=== PATIENT | female | born 1985 | race Caucasian/White ===

== ENCOUNTER 2016-06-12 18:34 | Emergency (ER) | payer OTHER ==
[~2016-06-12] VITALS: Ht 157.5 cm; Wt 83.9 kg
[~2016-06-12 18:34] MED LIST: BENTYL20 MG PO; CARDIZEM 30 MG30 MG PO; COMPAZINE10 MG PO; LEVOTHYROXINE88 MCG PO; MASON NATURAL2000 IU PO; METOCLOPRAMIDE10 MG PO; NEXIUM 40MG40 MG PO; PHENERGAN25 M1 PO; PRILOSEC 20MG C20 MG PO; REGLAN10 M1 PO; ULTRAM(MONOGRAP50 MG PO; ZOFRAN 4MG ORALL4 MG PO
[2016-06-12 19:09] LABS: ABSOLUTE BASOPHIL COUNT 0.1 /CUMM (0.0-0.2); ABSOLUTE EOSINOPHIL COUNT 0 /CUMM (0.0-0.7); ABSOLUTE GRANULOCYTE CT 9.5 /CUMM (1.4-6.5); ABSOLUTE LYMPH COUNT 1.5 /CUMM (1.2-3.4); ABSOLUTE MONOCYTE COUNT 0.5 /CUMM (0.10-0.60); BASOPHIL % 0.6 % (0.0-2.0); EOSINOPHIL % 0.1 % (0-5); GRANULOCYTE % 82.3 % (42.2-75.2); HEMATOCRIT 37.1 % (37-47); MEAN CORPUSCULAR HGB 24.5 PG (27.0-31.0); MEAN CORPUSCULAR HGB CONC 32.7 G/DL (33.0-37.0); MEAN PLATELET VOLUME 8.1 FL (7.4-10.4); PLATELET COUNT 395 /CUMM (130-400); RBC DISTRIBUTION WIDTH 17.1 % (11.5-14.5); RED BLOOD CELL CT 4.94 /CUMM (4.20-5.40); WHITE BLOOD CELL COUNT 11.6 /CUMM (4.8-10.8)
--- NOTE | 2016-06-12 19:22 | ED GI/GU/ABDOMINAL COMPLAINT ---
History of Present Illness General Chief Complaint: Nausea, Vomiting, Diarrhea Stated Complaint: ABD PAIN XS 1 DAY VOMITING Source: patient, family, old records Exam Limitations: no limitations Vital Signs & Intake/Output Vital Signs & Intake/Output Vital Signs Date Time Temp Pulse Resp B/P Pulse O2 O2 Flow FiO2 Ox Delivery Rate 06/12 2157 97.3 73 18 117/75 99 Room Air 06/12 2023 Room Air 06/12 1837 98.1 105 18 120/77 99 Room Air Allergies Coded Allergies: NO KNOWN ALLERGIES (05/30/14) Reconcile Medications CHOLECALCIFEROL (VITAMIN D3) (Vitamin D) 2,000 UNIT CAPSULE 1 CAP PO DAILY SUPPLEMENT (Reported) Dicyclomine Hydrochloride (Bentyl) 20 MG TAB 1 TAB PO 4 TIMES/DAY PRN ABDOMINAL CRAMPS Reason to Stop at ADM: NOT WORKING A/T PT Levothyroxine Sodium 0.025 MG TAB 1 TAB PO DAILY AC THYROID (Reported) Lorazepam (Ativan) 1 MG TABLET 1 TAB PO TID PRN NAUSEA METOCLOPRAMIDE HCL (Metoclopramide HCl) 10 MG TABLET 1 TAB PO BID N/V ( Reported) Omeprazole (Prilosec) 20 MG CAPSULE.DR 2 CAP PO BID HEARTBURN Ondansetron Odt 4 MG TAB.RAPDIS 4 MG PO Q4-6 PRN PRN NAUSEA/VOMITING Prochlorperazine Maleate (Compazine) 10 MG TAB 1 TAB PO TID PRN NAUSEA Promethazine HCl 12.5 MG TABLET 1 TAB PO Q6-8 PRN NAUSEA Promethazine Hydrochloride (Phenergan) 25 MG TAB 1 TAB PO TID PRN NAUSEA Triage Note: 31 Y/O FEMALE C/O ABDOMINAL "SPASMS" AND N/V/D SINCE YESTERDAY. STATES SHE CALLED DR GREEN AND HE TOLD HER TO COME TO ED. Triage Nurses Notes Reviewed? yes LMP (ages 10-50): 1 WEEK AGO ? N Is pt currently ? No Onset: Abrupt Duration: day(s): (3), constant Timing: recent history Quality/Severity: aching, vomiting Severity Numbers: 6 Location: generalized abdomen Radiation: no radiation Activities at Onset: none Prior Abdominal Problems: similar symptoms (CVS) Modifying Factors: Worsens With: eating. Associated Symptoms: nausea/vomiting HPI: 31-year-old female with history of cyclical vomiting syndrome, hypothyroid GERD presents to emergency room complaining of intractable nausea and vomiting for the past 3 days associated generalized abdominal pain. The patient states he states symptoms feel similar to her previous episode. The patient seen by GI Dr. Palmer and takes Reglan regularly. She's been taking it today without improvement. She denies any fever chills diarrhea change in her bowel movements chest pain urinary symptoms. Last menstrual cycle was one week ago. Symptoms are worse with attempted eating and drinking. There is no sick contacts with similar symptoms she denies tobacco alcohol or drug use. No history of abdominal surgeries in the past Past History Travel History Traveled to [place] past 21 day No Medical History Any Pertinent Medical History? see below for history Neurological: dizziness, migraine EENT: NONE Cardiovascular: hyperlipidemia Respiratory: NONE Gastrointestinal: GERD, CYCLICAL VOMITING SYNDROME Hepatic: NONE Renal: NONE Psychiatric: anxiety Endocrine: Taylor's thyroiditis, hypothyroidism Blood Disorders: NONE Cancer(s): NONE AGRICULTURAL SPECIALIST/Reproductive: chlamydia History of MRSA: No History of VRE: No History of CDIFF: No Surgical History Surgical History: non-contributory Psychosocial History Who do you live with Friend Services at Home None What is your primary language Guamanian Tobacco Use: Current Daily Use Daily Tobacco Use Amount/Type: => 5 Cigarettes daily Family History Hx Contributory? No Review of Systems Review of Systems Constitutional: Reports: see HPI. All Other Systems: Reviewed and Negative Comments Review of systems: See HPI, All other systems negative. Constitutional, no chills no fever, no malaise HEENT: No visual changes no sore throat no congestion Cardiovascular: No chest pain , no palpitation Skin, no jaundice no rashes, no change in skin Respiratory: No dyspnea no cough no sputum no hemoptysis GI: nausea vomiting, no diarrhea, no bloating/constipation : No dysuria No hematuria, no frequency, no discharge Muscle skeletal: No joint pain, no joint swelling, no back pain Neurologic: No numbness no confusion, no headache Psych: No stress Heme/endocrine: No bruising no bleeding Immunology: No lymphadenopathy Physical Exam Physical Exam General Appearance: well developed/nourished, no apparent distress, alert Gastrointestinal: normal bowel sounds, soft, non-tender Comments: Well-developed well-nourished person in no acute distress HEENT: Normal EENT exam; PERRL, EOMI, HEAD is atraumatic. moist mucous membranes. Neck: Supple, , normal range of motion Back: Nontender, no CVA tenderness. Full range of motion Cardiovascular: Regular rate and rhythms no murmurs rubs Respiratory: Chest nontender. No respiratory distress. Patient speaking in full complete sentences. Breath sounds clear to auscultation bilaterally: NO W/R/R Abdomen: Soft, nontender nondistended, no appreciable organomegaly. Normal bowel sounds. No rebound/guarding, No appreciable enlargement of the abdominal aorta, No ascites. Extremity: No edema, full range of motion of extremities Neuro: Alert oriented x3, motor sensory normal There were no obvious focal neurologic abnormalities. Skin: No appreciable rash on exposed skin, skin is warm and dry. No jaundice no diaphoresis Psych: Mood and affect is normal, memory and judgment is normal. Core Measures ACS in differential dx? No Severe Sepsis Present: No Septic Shock Present: No Progress Differential Diagnosis: appendicitis, biliary colic, bowel obstruction, colon cancer, diverticulitis, ectopic , endometritis, gastritis, hepatitis, hernia, ischemic bowel, inflamm bowel dis, intrauterine , kidney stone, pancreatitis, peptic ulcer, PUD/GERD, perforated viscous, threatened AB, UTI/ pyelo Plan of Care: Orders Procedure Date/time Status URINE 06/12 1838 Complete URINALYSIS 06/12 1838 Complete LACTIC ACID 06/12 1838 Complete COMPREHENSIVE METABOLIC PANEL 06/12 1838 Complete CBC WITHOUT DIFFERENTIAL 06/12 1838 Complete Laboratory Tests 06/12/162138: Lactic Acid Cancelled 06/12/16 193: Urine Color YEL, Urine Clarity CLEAR, Urine pH 6.0, Ur Specific [place] 1.020, Urine Protein NEG, Urine Ketones TRACE H, Urine Nitrite NEG, Urine Bilirubin NEG, Urine Urobilinogen 0.2, Ur Leukocyte Esterase NEG, Ur Microscopic EXAM NOT REQUIRED, Urine Hemoglobin NEG, Urine Glucose NEG, Urine Test NEGATIVE 06/12/16 1850: Anion Gap 13, Estimated GFR > 60, BUN/Creatinine Ratio 14.3, Glucose 106 H, Lactic Acid 1.0, Calcium 10.0, Total Bilirubin 0.4, AST 22, ALT 30, Alkaline Phosphatase 92, Total Protein 8.4 H, Albumin 4.9, Globulin 3.5, Albumin/ Globulin Ratio 1.4, CBC w Diff NO MAN DIFF REQ, RBC 4.94, MCV 75.0 L, MCH 24.5 L, RDW 17.1 H, MPV 8.1, Gran % 82.3 H, Lymphocytes % 13.0 L, Monocytes % 4.0, Eosinophils % 0.1, Basophils % 0.6, Absolute Granulocytes 9.5 H, Absolute Lymphocytes 1.5, Absolute Monocytes 0.5, Absolute Eosinophils 0, Absolute Basophils 0.1, PUBS MCHC 32.7 L Labs ordered old records reviewed patient medicated Ativan 1 mg IV Phenergan 50 mg IV IV fluids CAT scan ordered old records reviewed 06/12/2016 8:40:41 PM patient reports to feeling improved, she's had no episodes of vomiting here she reports her symptoms have improved with the medication. I discussed with her at late Her lab results and CAT scan findings we will continue to monitor. 06/12/2016 9:41:14 PM on repeat evaluation patient is resting comfortably, she's had no episodes of nausea vomiting or pain since being medicated with the Ativan which she reports improvement with. Discussed with her at length that he do not believe the patient requires admission which she is in agreement with advise close follow-up with GI Dr. Palmer, prescription for Phenergan Ativan was provided advised return anytime sooner if any concerns she feels comfortable this plan. I discussed with the patient at length all of their results, need for close follow up with their primary care physician. This week. I answered all of their questions, they feel comfortable with the plan and follow-up care. I discussed the medications that they will receive with the patient. I gave them signs and symptoms that could indicate an adverse reaction. I have advised them to limit their activities until they can see how they respond to the medication. (MIGUEL A AVILES,SUPA) Diagnostic Imaging: Viewed by Me: CT Scan. Discussed w/RAD: CT Scan. Radiology Impression: PATIENT: ROLANDO LOZADA PRESENT AGE: 31 PATIENT ACCOUNT NO: [id number] : 83 LOCATION: [facility] ORDERING PHYSICIAN: SUPA AVILES SERVICE DATE: 06/12/16 EXAM TYPE: CAT - CT ABD & PELVIS W IV CONTRAST EXAMINATION: CT ABDOMEN AND PELVIS WITH CONTRAST CLINICAL INFORMATION: Nausea and vomiting. COMPARISON: CT of the abdomen and pelvis from 05/31/2014 TECHNIQUE: Multidetector volumetric imaging was performed of the abdomen and pelvis before and after the IV administration of 95 mL of Optiray 320 intravenous contrast. Sagittal and coronal reformatted images were obtained on the technologist's workstation. DLP: 359 mGy-cm. FINDINGS: LUNG BASES: Minor dependent changes in the lung bases. The imaged heart and pericardium appear unremarkable. LIVER, GALLBLADDER, AND BILIARY TREE: The liver is normal in size, shape, and attenuation. No focal hepatic lesion or biliary ductal dilatation is present. The gallbladder is unremarkable with no evidence of radiopaque gallstones, gallbladder wall thickening, or obvious pericholecystic inflammatory changes. Minor density in the gallbladder fundus may reflect a trace amount of sludge. PANCREAS: Unremarkable. SPLEEN: Unremarkable. ADRENAL GLANDS: Unremarkable. KIDNEYS AND URETERS: The kidneys are normal in size, shape, and attenuation. No hydronephrosis, hydroureter, or calculi seen. No perinephric stranding. BLADDER: Under distended and unremarkable GASTROINTESTINAL TRACT: The small and large bowel are unremarkable. The appendix is unremarkable. ABDOMINAL WALL: There is a small fat-containing periumbilical hernia. LYMPH NODES: No adenopathy. VASCULAR: Unremarkable. PELVIC VISCERA: Unremarkable. OSSEOUS STRUCTURES: There is a mild dextroconvex lumbar scoliosis. 5 nonrib-bearing lumbar type vertebral bodies. No evidence of spondylolyses. No acute osseous abnormalities. IMPRESSION: No acute intra- abdominal or intrapelvic pathology. DICTATED BY: MARLENE HARTMANN MD DATE/TIME DICTATED:06/12/162021 ROTATING EQUIPMENT SPECIALIST:CARI DATE/TIME TRANSCRIBED:2021 CONFIDENTIAL, DO NOT COPY WITHOUT APPROPRIATE AUTHORIZATION. < Electronically signed in Other Vendor System> SIGNED BY: MARLENE HARTMANN MD 06/12/162031 Initial ED EKG: none Departure Departure Time of Disposition: 2144 Disposition: HOME OR SELF CARE Condition: Stable Clinical Impression Primary Impression: Nausea & vomiting Referrals: MIRZA TREJO MD (PCP/Family) Additional Instructions: Follow-up with Dr. Palmer as scheduled on . Ativan as directed Phenergan as directed for nausea these prescriptions were sent to your pharmacy bland diet clear liquids advance as tolerated return anytime sooner with any concerns Departure Forms: Customer Survey General Discharge Information Prescriptions: Current Visit Scripts Lorazepam (Ativan) 1 TAB PO TID PRN NAUSEA #10 TAB Promethazine HCl 1 TAB PO Q6-8 PRN NAUSEA #10 TAB
--- NOTE | 2016-06-12 20:32 | CT SCAN REPORT ---
EXAMINATION: CT ABDOMEN AND PELVIS WITH CONTRAST CLINICAL INFORMATION: Nausea and vomiting. COMPARISON: CT of the abdomen and pelvis from 05/31/2014 TECHNIQUE: Multidetector volumetric imaging was performed of the abdomen and pelvis before and after the IV administration of 95 mL of Optiray 320 intravenous contrast. Sagittal and coronal reformatted images were obtained on the technologist's workstation. DLP: 359 mGy-cm. FINDINGS: LUNG BASES: Minor dependent changes in the lung bases. The imaged heart and pericardium appear unremarkable. LIVER, GALLBLADDER, AND BILIARY TREE: The liver is normal in size, shape, and attenuation. No focal hepatic lesion or biliary ductal dilatation is present. The gallbladder is unremarkable with no evidence of radiopaque gallstones, gallbladder wall thickening, or obvious pericholecystic inflammatory changes. Minor density in the gallbladder fundus may reflect a trace amount of sludge. PANCREAS: Unremarkable. SPLEEN: Unremarkable. ADRENAL GLANDS: Unremarkable. KIDNEYS AND URETERS: The kidneys are normal in size, shape, and attenuation. No hydronephrosis, hydroureter, or calculi seen. No perinephric stranding. BLADDER: Under distended and unremarkable GASTROINTESTINAL TRACT: The small and large bowel are unremarkable. The appendix is unremarkable. ABDOMINAL WALL: There is a small fat-containing periumbilical hernia. LYMPH NODES: No adenopathy. VASCULAR: Unremarkable. PELVIC VISCERA: Unremarkable. OSSEOUS STRUCTURES: There is a mild dextroconvex lumbar scoliosis. 5 nonrib-bearing lumbar type vertebral bodies. No evidence of spondylolyses. No acute osseous abnormalities. IMPRESSION: No acute intra-abdominal or intrapelvic pathology.
[2016-06-12] MEDS ORDERED: PROMETHAZINE12.5 M2 PO (21:47)
[2016-06-12] MEDS ORDERED: ATIVAN1 M1 PO (21:47)
[2016-06-12 21:58] VITALS: BP 117/75
== END 2016-06-12 21:57 ==
LOC: ERH 18:34
PROVIDERS: Emergency Medicine
DX: R11.2 Nausea with vomiting, unspecified (principal)
CPT/HCPCS: 74177; 81003; 81025; 96374; 96375; J2550

== ENCOUNTER 2016-06-18 03:16 | Emergency (ER) | payer OTHER ==
[~2016-06-18] VITALS: Ht 157.5 cm; Wt 81.6 kg
[~2016-06-18 03:16] MED LIST changes: +ATIVAN1 M1 PO; +PROMETHAZINE12.5 M2 PO
--- NOTE | 2016-06-18 03:37 | ED GI/GU/ABDOMINAL COMPLAINT ---
History of Present Illness General Chief Complaint: Nausea, Vomiting, Diarrhea Stated Complaint: CONSTANT NAUSEA, CAN'T SLEEP Source: patient Exam Limitations: no limitations Vital Signs & Intake/Output Vital Signs & Intake/Output Vital Signs Date Time Temp Pulse Resp B/P Pulse O2 O2 Flow FiO2 Ox Delivery Rate 06/18 0328 97.5 102 18 110/78 97 Room Air Allergies Coded Allergies: NO KNOWN ALLERGIES (05/30/14) Reconcile Medications CHOLECALCIFEROL (VITAMIN D3) (Vitamin D) 2,000 UNIT CAPSULE 1 CAP PO DAILY SUPPLEMENT (Reported) Dicyclomine Hydrochloride (Bentyl) 20 MG TAB 1 TAB PO 4 TIMES/DAY PRN ABDOMINAL CRAMPS Reason to Stop at ADM: NOT WORKING A/T PT Levothyroxine Sodium 0.025 MG TAB 1 TAB PO DAILY AC THYROID (Reported) Lorazepam (Ativan) 1 MG TABLET 1 TAB PO TID PRN NAUSEA METOCLOPRAMIDE HCL (Metoclopramide HCl) 10 MG TABLET 1 TAB PO BID N/V ( Reported) Omeprazole (Prilosec) 20 MG CAPSULE.DR 2 CAP PO BID HEARTBURN Ondansetron Odt 4 MG TAB.RAPDIS 4 MG PO Q4-6 PRN PRN NAUSEA/VOMITING Prochlorperazine Maleate (Compazine) 10 MG TAB 1 TAB PO TID PRN NAUSEA Promethazine HCl 12.5 MG TABLET 1 TAB PO Q6-8 PRN NAUSEA Promethazine Hydrochloride (Phenergan) 25 MG TAB 1 TAB PO TID PRN NAUSEA Triage Note: C/O CONSTANT NAUSEA,EPIGASTRIC SPASMS SEEN TUES FOR SAME Past History Travel History Traveled to [place] past 21 day No Medical History Neurological: dizziness, migraine EENT: NONE Cardiovascular: hyperlipidemia Respiratory: NONE Gastrointestinal: GERD, CYCLICAL VOMITING SYNDROME Hepatic: NONE Renal: NONE Psychiatric: anxiety Endocrine: Taylor's thyroiditis, hypothyroidism Blood Disorders: NONE Cancer(s): NONE BEREAVEMENT COUNSELOR/Reproductive: chlamydia History of MRSA: No History of VRE: No History of CDIFF: No Surgical History Surgical History: non-contributory Psychosocial History Who do you live with Friend Services at Home None What is your primary language Uruguayan Tobacco Use: Current Daily Use Daily Tobacco Use Amount/Type: => 5 Cigarettes daily Review of Systems Review of Systems Constitutional: Reports: no symptoms. EENTM: Reports: no symptoms. Respiratory: Reports: no symptoms. Cardiovascular: Reports: no symptoms. GI: Reports: no symptoms. Genitourinary: Reports: no symptoms. Musculoskeletal: Reports: no symptoms. Skin: Reports: no symptoms. Neurological/Psychological: Reports: no symptoms. Hematologic/Endocrine: Reports: no symptoms. Immunologic/Allergic: Reports: no symptoms. All Other Systems: Reviewed and Negative Departure Departure Condition: Stable Referrals: MIRZA TREJO MD (PCP/Family) Departure Forms: Customer Survey General Discharge Information
[2016-06-18] MEDS ORDERED: RABEPRAZOLE SOD20 M1 PO (03:55)
--- NOTE | 2016-06-18 04:02 | ED GENERAL ADULT ---
History of Present Illness General Chief Complaint: Nausea, Vomiting, Diarrhea Stated Complaint: CONSTANT NAUSEA, CAN'T SLEEP Source: patient, family Exam Limitations: no limitations Vital Signs & Intake/Output Vital Signs & Intake/Output Vital Signs Date Time Temp Pulse Resp B/P Pulse O2 O2 Flow FiO2 Ox Delivery Rate 06/18 0625 97.5 93 20 123/83 98 Room Air 06/18 0328 97.5 102 18 110/78 97 Room Air Allergies Coded Allergies: buspirone (From BUSPAR) (DEPRESSION 06/18/16) ondansetron (From ZOFRAN ( HYDROCHLORIDE)) (DEPRESSSION 06/18/16) Reconcile Medications Levothyroxine Sodium 0.025 MG TAB 1 TAB PO DAILY AC THYROID (Reported) Lorazepam (Ativan) 1 MG TABLET 1 TAB PO TID PRN NAUSEA SIXTEEN....[id number] METOCLOPRAMIDE HCL (Metoclopramide HCl) 10 MG TABLET 1 TAB PO BID N/V ( Reported) Metoclopramide HCl (Reglan) 10 MG TABLET 1 TAB PO 4 TIMES/DAY PRN NAUSEA 30 minutes before meals and bedtime Prochlorperazine Maleate (Compazine) 10 MG TAB 1 TAB PO TID PRN NAUSEA Promethazine HCl (Phenadoz) 25 MG SUPP.RECT 1 SUPP SC TID PRN NAUSEA Promethazine HCl 25 MG TABLET 1 TAB PO Q6P PRN NAUSEA Promethazine HCl 12.5 MG TABLET 1 TAB PO Q6-8 PRN NAUSEA Promethazine Hydrochloride (Phenergan) 25 MG TAB 1 TAB PO TID PRN NAUSEA Rabeprazole Sodium 20 MG TABLET.DR 1 TAB PO DAILY GERD (Reported) Triage Note: C/O CONSTANT NAUSEA,EPIGASTRIC SPASMS SEEN FOR SAME Triage Nurses Notes Reviewed? yes Onset: Last week Duration: day(s): Timing: multiple episodes today Severity: severe Severity Numbers: 10 Modifying Factors: Improves With: medication. Associated Symptoms: nausea and vomiting : No Patient currently breastfeeds: No HPI: Patient came to the ED complaining of severe nausea and vomiting and feeling tightness in the epigastric area. Patient had similar symptoms when she came to the ED on Saturday and she was treated with lorazepam, promethazine, and Pepcid. She was discharged on lorazepam and promethazine and symptoms was improved until she finished her medications this morning and she started to have nausea vomiting. she relates her symptoms to stressors at work. She denies abdominal pain, fever, chills. denies headache. Patient has a history of cyclic vomiting syndrome diagnosed 2 years ago and since then she has had 2 episodes of the same symptoms including nausea and vomiting and feeling spasm and tightness in the upper abdomen. (MARIA ALEJANDRA DARDEN MD) Past History Travel History Traveled to [place] past 21 day No Medical History Any Pertinent Medical History? 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 No (MARIA ALEJANDRA DARDEN MD) Review of Systems Review of Systems Constitutional: Denies: chills, fever, weakness. EENTM: Reports: no symptoms. Respiratory: Denies: cough, short of breath. Cardiovascular: Denies: chest pain, palpitations, peripheral edema. GI: Reports: nausea, vomiting. Denies: abdominal pain, bloating, constipation, diarrhea, bloody stool, changes in stool. Genitourinary: Denies: dysuria, frequency, hematuria, hesitation, nocturia. Musculoskeletal: Denies: back pain, joint pain, joint swelling. Skin: Reports: no symptoms. Neurological/Psychological: Reports: anxiety. Denies: headache, numbness, weakness. Hematologic/Endocrine: Denies: bruising, bleeding, polyuria, polydipsia. (MARIA ALEJANDRA DARDEN MD) Physical Exam Physical Exam General Appearance: well developed/nourished, no apparent distress, alert, awake , anxious, moderate distress Head: atraumatic, normal appearance Eyes: Bilateral: normal appearance, PERRL, EOMI. Ears, Nose, Throat: normal pharynx, normal ENT inspection, hearing grossly normal Neck: normal inspection, supple, full range of motion Respiratory: normal breath sounds, chest non-tender, no respiratory distress Cardiovascular: regular rate/rhythm Peripheral Pulses: 2+ radial (R), 2+ radial (L) Gastrointestinal: normal bowel sounds, tenderness in the epigastric area, no rebound tenderness, Yen sign negative Back: normal inspection, normal range of motion, vertebral tenderness Extremities: normal inspection, normal capillary refill, normal range of motion, no edema Neurologic/Psych: no motor/sensory deficits, awake, alert, oriented x 3 Skin: intact, normal color, warm/dry Core Measures ACS in differential dx? No CVA/TIA Diagnosis: No Severe Sepsis Present: No Septic Shock Present: No (KATALINA BURNS,[facility]) Progress Differential Diagnoses I considered the following diagnoses in my evaluation of the patient: [Cyclic vomiting syndrome, gastritis, rule out pancreatitis, biliary colic] Plan of Care: Orders Procedure Date/time Status LIPASE 06/18 411 Complete HEPATIC FUNCTION PANEL 06/18 411 Complete HUMAN BETA HCG SCREEN 06/18 411 Complete CBC WITHOUT DIFFERENTIAL 06/18 411 Complete BASIC METABOLIC PANEL 06/18 411 Complete AMYLASE 06/18 411 Complete Current Medications Sig/Radha Start time Last Medication Dose Stop Time Status Admin Hydromorphone HCl 1 MG ONCE ONE 06/18 414 CAN (Dilaudid) 06/18 415 Lorazepam 1 MG ONE ONE 06/185 CAN (Ativan) 06/18 415 Lorazepam 2 MG ONCE ONE 06/185 CAN (Ativan) 06/18 415 Promethazine HCl 25 MG ONCE ONE 06/185 CAN (Phenergan 25MG 06/18 415 Tablet) Ondansetron HCl 4 MG ONCE ONE 06/18 0345 CAN (Zofran) 06/18 345 Laboratory Tests 06/18/16 0445: Anion Gap 10, Estimated GFR > 60, BUN/Creatinine Ratio 8.8, Glucose 90, Calcium 9.0, Total Bilirubin 0.4, Direct Bilirubin 0.3, AST 15, ALT 29, Alkaline Phosphatase 76, Total Protein 6.9, Albumin 3.9, Amylase < 30 L, Lipase 50, Total Beta HCG NEGATIVE, CBC w Diff NO MAN DIFF REQ, RBC 4.40, MCV 75.6 L, MCH 24.6 L, RDW 17.0 H, MPV 8.0, Gran % 73.4, Lymphocytes % 20.5, Monocytes % 5.7, Eosinophils % 0.2, Basophils % 0.2, Absolute Granulocytes 5.0, Absolute Lymphocytes 1.4, Absolute Monocytes 0.4, Absolute Eosinophils 0, Absolute Basophils 0, PUBS MCHC 32.5 L Initial ED EKG: none (KATALINA BURNS,MARIA ALEJANDRA) Departure Departure Disposition: HOME OR SELF CARE Condition: Stable Clinical Impression Primary Impression: Cyclic vomiting syndrome Secondary Impressions: Gastritis, Pancreatitis Ruled Out Impressions: Referrals: NEIL BURNS,MIRZA (PCP/Family) NABILA BURNS,GLADYS Jara Additional Instructions: Please come back to the ED if symptoms worsen. Please follow up with Dr. Palmer within a week of discharge. Departure Forms: Customer Survey General Discharge Information Prescriptions: Current Visit Scripts Promethazine HCl (Phenadoz) 1 SUPP SC TID PRN NAUSEA #10 SUPP Promethazine HCl 1 TAB PO Q6P PRN NAUSEA #30 TAB Ref 1 Lorazepam (Ativan) 1 TAB PO TID PRN NAUSEA #16 TAB Ref 1 SIXTEEN....[id number] Metoclopramide HCl (Reglan) 1 TAB PO 4 TIMES/DAY PRN NAUSEA #30 TAB Ref 1 30 minutes before meals and bedtime (KATALINA BURNS,MARIA ALEJANDRA) Departure Comments 06/18/16, 7:00.... pt has had no vomiting while in the ED... labs benign... most consistent with cyclic vomiting syndrome.... supportive meds given with rx for same.... pt to follow up with her college coach. Resident Co-Sign Statement Statement: ED Attending supervision documentation- [x] I saw and evaluated the patient. I have also reviewed all the pertinent lab results and diagnostic results. I agree with the findings and the plan of care as documented in the Resident's documentation. 06/18/16, 7:00.... pt has had no vomiting while in the ED... on exam, non tender abdomen.... labs benign... most consistent with cyclic vomiting syndrome.... supportive meds given with rx for same.... pt to follow up with her college coach. [] I have reviewed the ED Record and agree with the Resident's documentation. [] Additions or exceptions (if any) to the Resident's note and plan are summarized below: [] (STIVEN BURNS,KILO Salamanca) Critical Care Note Critical Care Note Critical Care Time: non-applicable (KATALINA BURNS,MARIA ALEJANDRA)
[2016-06-18 04:59] LABS: ABSOLUTE BASOPHIL COUNT 0 /CUMM (0.0-0.2); ABSOLUTE EOSINOPHIL COUNT 0 /CUMM (0.0-0.7); ABSOLUTE LYMPH COUNT 1.4 /CUMM (1.2-3.4); ABSOLUTE MONOCYTE COUNT 0.4 /CUMM (0.10-0.60); BASOPHIL % 0.2 % (0.0-2.0); EOSINOPHIL % 0.2 % (0-5); GRANULOCYTE % 73.4 % (42.2-75.2); HEMATOCRIT 33.3 % (37-47); MEAN CORPUSCULAR HGB 24.6 PG (27.0-31.0); MEAN CORPUSCULAR HGB CONC 32.5 G/DL (33.0-37.0); MEAN CORPUSCULAR VOLUME 75.6 FL (81.0-99.0); PLATELET COUNT 321 /CUMM (130-400); WHITE BLOOD CELL COUNT 6.8 /CUMM (4.8-10.8)
[2016-06-18] MEDS ORDERED: PROMETHAZINE HC25 M3 PO (06:11)
[2016-06-18] MEDS ORDERED: PHENADOZ PR (06:11)
[2016-06-18] MEDS ORDERED: REGLAN10 M1 PO (06:11)
[2016-06-18] MEDS ORDERED: ATIVAN1 M1 PO (06:11)
[2016-06-18 06:25] VITALS: BP 123/83
== END 2016-06-18 07:33 ==
LOC: ERH 03:16
PROVIDERS: Pediatrics
DX: G43.A0 Cyclical vomiting, in migraine, not intractable (principal); K29.70 Gastritis, unspecified, without bleeding; K85.90 Acute pancreatitis without necrosis or infection, unspecified
CPT/HCPCS: 96361; 96365; 96375; J2550; J2765; J3101

== ENCOUNTER 2016-07-05 05:20 | Emergency (ER) | payer OTHER ==
[~2016-07-05] VITALS: Ht 157.5 cm; Wt 80.7 kg
[~2016-07-05 05:20] MED LIST changes: +PHENADOZ PR; +PROMETHAZINE HC25 M3 PO; +RABEPRAZOLE SOD20 M1 PO
--- NOTE | 2016-07-05 05:35 | ED PSYCHIATRIC COMPLAINT ---
History of Present Illness General Chief Complaint: Psychiatric Related Complaint Stated Complaint: +SI,PANIC ATTACK Source: patient Exam Limitations: no limitations Vital Signs & Intake/Output Vital Signs & Intake/Output Vital Signs Date Time Temp Pulse Resp B/P Pulse O2 O2 Flow FiO2 Ox Delivery Rate 07/05 1121 98.0 104 18 116/78 97 Room Air 07/05 0852 98.2 100 18 116/68 97 Room Air 07/05 0538 100 Room Air 07/05 0531 98.6 116 16 119/87 96 Room Air Allergies Coded Allergies: buspirone (From BUSPAR) (DEPRESSION 06/18/16) ondansetron (From ZOFRAN ( HYDROCHLORIDE)) (DEPRESSSION 06/18/16) Triage Note: 31yo FEMALE TO TRIAGE W/CO "PANIC ATTACK W/THOUGHTS OF SUICIDE TONITE" STTES SHE WAS VERY STRESSED AND 2 WEEKS AGO QUIT HER JOB AND WAS PLACED ON LEXAPRO AND EVER SONCE STARTING THE LEXAPRO HAS HAD THESE THOUGHTS" Triage Nurses Notes Reviewed? yes Onset: Gradual Duration: week(s): Timing: recent history Severity: moderate Associated Symptoms: anxiety, suicidal ideation HPI: 31-year-old woman history of anxiety for the past several months presents now with worsening anxiety and suicidal ideation. 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 She notes that she has had continual anxiety where she is unable to sleep. She states she has not been able to sleep for the past several days. Her primary care doctor has given her Lexapro and short courses of Xanax without improvement. Tonight she states that, "I've had continual anxiety. I thought about killing myself. I thought about which knife I would use." She denies alcohol or drug use. She is otherwise well. (STIVEN BURNS,KILO Salamanca) Reconcile Medications Escitalopram Oxalate (Lexapro) 10 MG TABLET 1 TAB PO DAILY DEPRESSION ( Reported) Levothyroxine Sodium 88 MCG TABLET 1 TAB PO DAILY THYROID (Reported) Metoclopramide HCl (Reglan) 10 MG TABLET 1 TAB PO 4XDP N/V (Reported) 30 minutes before meals and bedtime Rabeprazole Sodium 20 MG TABLET.DR 1 TAB PO DAILY GERD (Reported) (ANIBAL BURNS,MIKE Knight) Past History Travel History Traveled to [place] past 21 day No Medical History Any Pertinent Medical History? 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 No (STIVEN BURNS,KILO Salamanca) Review of Systems Review of Systems Constitutional: Reports: no symptoms. EENTM: Reports: no symptoms. Respiratory: Reports: no symptoms. Cardiovascular: Reports: no symptoms. GI: Reports: no symptoms. Genitourinary: Reports: no symptoms. Musculoskeletal: Reports: no symptoms. Skin: Reports: no symptoms. Neurological/Psychological: Reports: no symptoms. Hematologic/Endocrine: Reports: no symptoms. Immunologic/Allergic: Reports: no symptoms. All Other Systems: Reviewed and Negative (STIVEN BURNS,KILO Salamanca) Physical Exam Physical Exam General Appearance: well developed/nourished, anxious, mild distress Head: atraumatic Eyes: Bilateral: PERRL, EOMI. Ears, Nose, Throat: normal pharynx, normal ENT inspection, hearing grossly normal Neck: normal inspection, supple Respiratory: normal breath sounds Cardiovascular: regular rate/rhythm Gastrointestinal: soft, non-tender Extremities: normal range of motion Neurological/Psychiatric: no motor/sensory deficits, awake, agitated, alert, anxious, oriented x 3 Appearance/Memory/Insight: appropriate appearance Behavoir/Eye Contact/Speech: cooperative Skin: intact, normal color, warm/dry SAD PERSONS SAD PERSONS Response Value Social Support? has support 0 Total 0 SAD PERSONS Done? yes (STIVEN BURNS,KILO Salamanca) Progress Differential Diagnosis: ANXIETY VERSUS DEPRESSION VERSUS BIPOLAR VERSUS THYROID ISSUES Plan of Care: Orders Procedure Date/time Status Regular Diet 07/05 B Active Continuous Observation Monitor 07/05 526 Active URINE DRUG SCREEN FOR ER ONLY 07/05 526 Complete THYROID STIMULATING HORMONE 07/05 526 Complete HUMAN BETA HCG SCREEN 07/05 526 Complete ETHANOL 07/05 526 Complete COMPREHENSIVE METABOLIC PANEL 07/05 526 Complete CBC WITHOUT DIFFERENTIAL 07/05 526 Complete ED CRISIS PSYCH CONSULT 07/05 526 Active Current Medications Sig/Radha Start time Last Medication Dose Stop Time Status Admin Promethazine HCl 25 MG ONCE ONE 07/05 1630 UNVr (Phenergan 25MG 07/05 1631 Tablet) Lorazepam 1 MG Q3P PRN 07/05 0600 AC (Ativan) Laboratory Tests 07/05/16 0559: Anion Gap 13, Estimated GFR > 60, BUN/Creatinine Ratio 10.0, Glucose 91, Calcium 9.7, Total Bilirubin 0.4, AST 19, ALT 43, Alkaline Phosphatase 94, Total Protein 7.9, Albumin 4.6, Globulin 3.3, Albumin/Globulin Ratio 1.4, TSH 3.400, Total Beta HCG NEGATIVE, CBC w Diff NO MAN DIFF REQ, RBC 5.04, MCV 76.0 L, MCH 24.8 L, RDW 18.0 H, MPV 8.1, Gran % 75.2, Lymphocytes % 18.4 L, Monocytes % 5.8, Eosinophils % 0.1, Basophils % 0.5, Absolute Granulocytes 6.0, Absolute Lymphocytes 1.5, Absolute Monocytes 0.5, Absolute Eosinophils 0, Absolute Basophils 0, PUBS MCHC 32.6 L, Serum Alcohol < 10.0 07/05/16 0551: TSH Cancelled 07/05/16 0535: Urine Opiates Screen < 100.00, Methadone Screen 61, Barbiturate Screen < 60, Ur Phencyclidine Scrn < 6.00, Amphetamines Screen < 100, U Benzodiazepines Scrn > 800 H, Urine Cocaine Screen < 50, Urine Cannabis Screen < 5.00 Hand-Off Endorsed To: ANIBAL BURNS,MIKE Knight Endorsed Time: 0700 Pending: consult, labs (STIVEN BURNS,KILO Salamanca) Comments: 07/05/2016 9:53:58 AM patient signed out to me by Dr. Duckworth at shift change coordinator. Patient has been evaluated by crisis and a bed search is in progress. Ativan ordered at their request. 07/05/2016 4:19:44 PM Patient to be transferred to [facility]. (ANIBAL BURNS,MIKE Knight) Departure Departure Condition: Stable Clinical Impression Primary Impression: Anxiety Referrals: MIRZA TREJO MD (PCP/Family) Departure Forms: Customer Survey General Discharge Information (STIVEN BURNS,KILO Salamanca) Departure Disposition: OTHER [facility] (ANIBAL BURNS,MIKE Hwoell
[2016-07-05 06:09] LABS: ABSOLUTE BASOPHIL COUNT 0 /CUMM (0.0-0.2); ABSOLUTE EOSINOPHIL COUNT 0 /CUMM (0.0-0.7); ABSOLUTE LYMPH COUNT 1.5 /CUMM (1.2-3.4); ABSOLUTE MONOCYTE COUNT 0.5 /CUMM (0.10-0.60); BASOPHIL % 0.5 % (0.0-2.0); EOSINOPHIL % 0.1 % (0-5); GRANULOCYTE % 75.2 % (42.2-75.2); HEMATOCRIT 38.3 % (37-47); MEAN CORPUSCULAR HGB 24.8 PG (27.0-31.0); MEAN CORPUSCULAR HGB CONC 32.6 G/DL (33.0-37.0); MEAN PLATELET VOLUME 8.1 FL (7.4-10.4); PLATELET COUNT 402 /CUMM (130-400); RED BLOOD CELL CT 5.04 /CUMM (4.20-5.40)
[2016-07-05] MEDS ORDERED: LEXAPRO10 M1 PO ×2 (10:22→10:23)
--- NOTE | 2016-07-05 11:33 | ED PSYCH CRISIS CONSULTATION ---
See Addendum Crisis Consult Basic Assessment Date of Consult: 07/05/16 Responsible Person/Accompanied By: Jean jimenez Insurance Authorization: Insurance #1: Insurance name: MICHAEL MARTIN Phone number: Policy number: [id number] Group number: [id number] Authorization number: ED Provider: Patient's ED Provider: STIVEN BURNS,MANAS Salamanca Primary Care Physician: Patient's PCP: MIRZA TREJO MD PCP's Current Psychiatrist: none Chief Complaint: Psychiatric Related Panic/Anxiety?S I Patient's Quote: "Have not slept in 4 weeks. I woke up wanting to cut my wrists " Puts S.I. a Present Illness: Patient is a 31 year old, female who lives with her of 2 years, as well as her 2 children from 2 separate relationships. She has a girl who is 12, and a boy who is 8. Patient states that she has finally reached a real bottom, as she has been unable to sleep for 4 + weeks, and wound up losing job and then getting new job, involving significant travel, and worried about losing this job as well due to on-going, unrelenting anxiety and panic attacks. Patient describes feeling desperate and scared, and woke up this morning with vivid plan to cut her wrists an d feels that she might do this, which makes her even more fearful. Patient has described herself as beimgn "always depressed", having grown up in home of alcoholic mother (still drinking), and a drug user father who is in half-way. Patient reports that home was always chaotic. Patient has Hypothyroid and auto immune disease. She has GERD, andshe states much worsening anxiety, depression and panic---which she describes as crippling, and prevents her from living anything close to a normal life. The suicidal thoughts and plans areb a culmination of a series of disappointments with her ability to bounce back or to get any help from medications ( Buspar--made her ill; Lexapro is just 2 weeks started; and ativan helps some, but wears off, and patient back to panic. n Patient is also frustrated with her PCP and inability to get seen by any psychiatrist for "at least 6 weeks" Daughter suffers from depression. Son has ADHD for which she is on meds Her is not father of either of the 2, but has genuine caring for patient. Family brought her to [facility] early a. m. due to worsening symptoms and suicidal ideation. 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 She is responsive. Alert and O x 3, and very pessimistic. Patient's Address: [address] [place] [address] Other Phone Number: Who Do You Live With? Friend Family/Informants Interviewed: Mother Stepfather Jean Allergies - Coded Allergies: buspirone (From BUSPAR) (DEPRESSION 06/18/16) ondansetron (From ZOFRAN ( HYDROCHLORIDE)) (DEPRESSSION 06/18/16) Current Medications - Scheduled Medications Escitalopram Oxalate (Lexapro) 10 MG TABLET 1 TAB PO DAILY DEPRESSION ( Reported) Entered as Reported by LELIA PRICE on 07/05/16 1022 Levothyroxine Sodium 88 MCG TABLET 1 TAB PO DAILY THYROID (Reported) Entered as Reported by AUTUMN HIGHTOWER on 05/30/14 1210 Metoclopramide HCl (Reglan) 10 MG TABLET 1 TAB PO 4XDP N/V (Reported) Entered as Reported by ALEX ROBERTS on 06/28/14 2219 Rabeprazole Sodium 20 MG TABLET. 1 TAB PO DAILY GERD #30 (Reported) Entered as Reported by BARAK WARE on 06/18/16 6505 Laboratory Results: Laboratory Tests 07/05/16 0559: Anion Gap 13, Estimated GFR > 60, BUN/Creatinine Ratio 10.0, Glucose 91, Calcium 9.7, Total Bilirubin 0.4, AST 19, ALT 43, Alkaline Phosphatase 94, Total Protein 7.9, Albumin 4.6, Globulin 3.3, Albumin/Globulin Ratio 1.4, TSH 3.400, Total Beta HCG NEGATIVE, CBC w Diff NO MAN DIFF REQ, RBC 5.04, MCV 76.0 L, MCH 24.8 L, RDW 18.0 H, MPV 8.1, Gran % 75.2, Lymphocytes % 18.4 L, Monocytes % 5.8, Eosinophils % 0.1, Basophils % 0.5, Absolute Granulocytes 6.0, Absolute Lymphocytes 1.5, Absolute Monocytes 0.5, Absolute Eosinophils 0, Absolute Basophils 0, PUBS MCHC 32.6 L, Serum Alcohol < 10.0 07/05/16 0551: TSH Cancelled 07/05/16 0535: Urine Opiates Screen < 100.00, Methadone Screen 61, Barbiturate Screen < 60, Ur Phencyclidine Scrn < 6.00, Amphetamines Screen < 100, U Benzodiazepines Scrn > 800 H, Urine Cocaine Screen < 50, Urine Cannabis Screen < 5.00 Past History Past Medical History Neurological: dizziness, migraine EENT: NONE Cardiovascular: hyperlipidemia Respiratory: NONE Gastrointestinal: GERD, CYCLICAL VOMITING SYNDROME Hepatic: NONE Renal: NONE Psychiatric: anxiety Endocrine: Taylor's thyroiditis, hypothyroidism Blood Disorders: NONE Cancer(s): NONE 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 Substance Use/Abuse History Drug Use/Abuse Substances Used/Abused No Substance Abuse Treatment Substance Abuse Treatment Past Substance Abuse [place] No Current Mental Status Mental Status Orientation: Person, Place, Situation Affect: Anxious, Angry, Depressed, Hopeless, Sad Speech: Pressured, Soft Neuro-vegetative: Concentration Poor, Energy Decreased, Sleep Disturbance Appearance Appearance- Dress/Hygiene: neat Behaviors Thought Process: WNL Thought Content: Thought Blocking Memory: WNL Insight: Fair SI/HI Risk Assessment Past Suicidal Ideation/Attempts No Current Suicidal Ideation/Att Yes Past Homicidal Ideation/Att: No Current Homicidal Ideation/Attempts No Degree of Intent: Plan Danger To: Self Gravely Disabled: Lack of Insight, Poor Judgment Risk Factors: chronic/serious med cond., high anxiety/distress, poor impulse control Lethality Ratin PTSD Checklist PTSD Done? patient declined ED Management Sitter: Yes Restraints: No DSM5/PS Stressors/Medical Prob Diagnosis' (DSM 5, Stressors, Medical): Major Depressive, recurrent, moderate F 33.1 Panic d.o. F41.0 ANXIETY D.O. f41.1 Current GAF: 27 Comments: pATIENT IS EXTREMELY FEARFUL OF THE SIUCIDAL IMAGERY, AND STATES THAT SHE HAS BEEN ON A [employer] COURSE FOR MORE THAN YEAR Departure Disposition Psych Medical Clearance Date: 07/05/16 Medically Cleared at: 1010 Time Started: 1015 Time Ended: 1100 Psychiatrist Consulted: Manas Betancourt MD Date Disposition Established: 07/05/16 Time Disposition Established: 1230 Plan for Disposition - Modality: Inpatient Psychiatry Referrals MIRZA TREJO MD (PCP/Family) tO BE
[2016-07-05 16:51] VITALS: BP 122/77
== END 2016-07-05 17:07 | disposition other institution (70) ==
LOC: ERH 05:20
PROVIDERS: Pediatrics
DX: F41.9 Anxiety disorder, unspecified (principal); E03.9 Hypothyroidism, unspecified; G43.A0 Cyclical vomiting, in migraine, not intractable
CPT/HCPCS: 80307; G0463; G0480; J2405